=== PATIENT | female | born 1970 ===

== ENCOUNTER 2024-11-20 11:58 | Outpatient (AMB) | payer OTHER, SELFPAY ==
--- NOTE | 2024-11-20 12:26 | MHC.OFFVIS ---
Intake Visit Reasons: Tremors Allergies No Known Allergies Allergy (Verified 11/19/24 08:50) HPI Comments Details: The patient is a 54-year-old female presenting with a tremor in the right hand. 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 It is not present when the patient is at rest or sedentary. The patient reports episodic numbness in both hands, particularly noticeable in the mornings. This numbness has not significantly affected her sleep patterns. She has a professional background involving nail work for about 15 years, possibly implicating repetitive stress. There is no significant familial predisposition to tremors, and her gait is unaffected. [facility] Medical History (Updated 11/20/24 @ 12:31 by Patti Clark MD) GERD (gastroesophageal reflux disease) Vitamin D deficiency Seasonal allergies Anemia Tremor Surgical History (Updated 11/19/24 @ 08:48 by Rios Reaves CMA) History of laparoscopic cholecystectomy Previous section Review of Systems Const Details: - Neurological: Reports tremor of the right hand, numbness in both hands. Denies difficulty walking. - Musculoskeletal: Denies pain in the hands or elsewhere. - Family history: Denies family history of tremor or similar symptoms. Physical Exam Neuro Other: Mental Status: Alert and oriented to person, place, and time. Normal attention. Normal spontaneous speech, fluency, and comprehension. No obvious issues with mood and memory. Affect is appropriate. Cranial Nerves: CN II: Visual rush full to confrontation, visual acuity intact. CN III, IV, : Pupils equal, round, reactive to light and accommodation. Extraocular movements are normal. CN V: Facial sensation is normal. CN VII: Facial movements symmetrical. CN VIII: Hearing intact to bedside conversation is normal. CN IX, X: Palate elevates symmetrically. CN XI: Shoulder shrug and head turn symmetrical. CN XII: Tongue midline without atrophy or fasciculations. Motor: Bulk and tone normal in all extremities. No significant muscle weakness in arms and legs. No drift. Reflexes: Deep tendon reflexes 2+ and symmetric. Plantar response down-going bilaterally. Coordination: Zynyjp-sj-kjah and wqpo-ko-zcgy testing normal. No dysmetria. Gait and Station: No obvious gait abnormality. No ataxia or instability. Sensory: Intact to light touch, pinprick, and vibration. Romberg is negative. Extrapyramidal: Full facial expressions and blinking. No rigidity. Movements are appropriate with no tremor or abnormality. Speech: Normal; no dysarthria or tremor. Assessment & Plan Assessment & Plan (1) Tremor: Code(s): R25.1 - Tremor, unspecified Category: Medical (2) Carpal tunnel syndrome: Code(s): G56.00 - Carpal tunnel syndrome, unspecified upper limb Category: Medical Qualifiers: Laterality: bilateral Qualified Code(s): G56.03 - Carpal tunnel syndrome, bilateral upper limbs Plan Impression: 1. Mild right hand postural or action tremor mostly noted when she was working in her nail salon. 2. Bilateral carpal tunnel syndrome probably related to long years of working at [employer]. Recommendations: 1. EMG nerve conduction study upper extremities 2. No medicine is needed for tremor this time The patient's symptoms were discussed, focusing on the tremor and possible carpal tunnel syndrome. We discussed that the tremor does not currently warrant medication since it is minor and task-specific. For suspected carpal tunnel syndrome, we agreed on performing EMG and nerve conduction studies to help confirm the diagnosis. Non-pharmacological strategies will continue until the diagnostic results are reviewed. Future follow-up is necessary to reevaluate if the symptoms evolve. Orders: Orders NE electromyogram (EMG) Today G56.00 - Carpal tunnel syndrome, unspecified upper limb NE nerve conduction velocity Today G56.00 - Carpal tunnel syndrome, unspecified upper limb Coding Level of Care Code New Pt Level 4 (98993) Diagnoses Tremor R25.1 Bilateral carpal tunnel syndrome G56.03 Laterality: bilateral
--- OUTSIDE RECORDS SUMMARY | 2024-11-20 15:03 | XMS_ITS | Clinical Summary ---
Author Organization [facility] Address [address] [place] [address] Phone Care Team Providers Care Amortization Schedule Clerk Name Role Phone Patricia Tee MD Primary Care Provider [phone] Allergies No known active allergies Medications calcium carb, citrate/vit D3 (CITRACAL-D3 SLOW RELEASE ORAL) Take 1 Tab by mouth daily. Active fluoride, sodium, (Clinpro 5000) 1.1 % paste APPLY 1 EACH TOPICALLY 2 TIMES DAILY. USE TO BRUSH TEETH TWICE DAILY Active Clinpro 5000 1.1 % paste Apply 1 Dose topically 2 (two) times a day. 113 g 1 07/18/19 25 Active famotidine (PEPCID) 20 mg tablet TAKE 1 TABLET BY MOUTH TWICE A DAY 180 tablet 1 11/08/19 25 Active famotidine (PEPCID) 20 mg tablet Take 1 tablet (20 mg total) by mouth 2 (two) times a day. 60 tablet 3 08/10/19 25 025 Discontinued Active Problems Problem Noted Date Diagnosed Date Anemia 01/24/2018 Seasonal allergies 01/24/2018 Vitamin D deficiency 01/19/2017 GERD (gastroesophageal reflux disease) 7 Surgical History Surgery Date Site/Laterality Comments CHOLECYSTECTOMY PROCEDURE: PA LAPAROSCOPY SURG CHOLECYSTECTOMY SECTION PROCEDURE: HISTORICAL Medical History Medical History Date Comments Seasonal allergies 01/24/2018 DX:Seasonal a llergies Anemia 01/24/2018 DX:Anemia GERD (gastroesophageal reflu x disease) 01/18/2017 DX:GERD (gastroesophageal re flux disease) Vitamin D deficiency 01/19/2017 DX:Vitamin D deficiency Family History Medical History Relation Name Comments Kidney failure Father Relation Name Status Comments Brother 1 Alive Brother 2 Alive Daughter Alive Father Mother Alive Sister 1 Alive Sister 2 Alive Social History Tobacco Use Types Packs/Day Years Used Date Smoking Tobacco: Never Smokeless Tobacco: Never Alcohol Use Standard Drinks/Week Comments No 0 (1 standard drink = 0.6 oz pur e alcohol) Comments No Sex and Gender Information Value Date Recorded Sex Assigned at Female 03/05/2024 12:51 PM EST Legal Sex Female 1:42 AM EST Gender Identity Female 03/05/2024 12:51 PM EST Sexual Orientation Straight 03/05/2024 12 :51 PM EST Obstetrics History Para Term AB IAB SAB Ectopic Multiple Livin g Live Births 2 2 Date Outcome GA Total Labor Labor/2nd/3rd Weight Sex Type Anes PTL Priscilla A1 A5 Name Clin Last Filed Vital Signs Vital Sign Reading Time Taken Comments Blood Pressure 110/58 08/09/2024 12:03 PM EDT Pulse 65 08/09/2024 12:03 PM EDT Temperature 36.3 C (97.3 F) 08/09/2024 12:03 PM EDT Respiratory Rate - - Oxygen Saturation 99% 08/09/2024 12:03 PM EDT Inhaled Oxygen Concentration - - Weight 51.8 kg (114 lb 3.2 oz) 08/09/2024 12:03 PM EDT Height 142.2 cm (4' 8 ) 03/06/2024 11:16 AM EST Body Mass Index 25.6 03/06/2024 11:16 AM EST Plan of Treatment Upcoming Encounters Date Type Department Care Team (Late st Contact Info) Description 02/20/2025 10:30 AM EST Appointment [facility] Ultrasound [address] [place] [phone] 08/13/2025 10:30 AM EDT Office Visit Internal Medicine - [place] [address] [facility] [address] [place] [phone] aPtricia Tee MD 175 [facility] [address] [place] [phone] Health Maintenance Due Date Last Done Comments DTaP,Tdap,and Td Vaccines (1 - Tdap) 1990 Hepatitis B Vaccines (1 of 3 - 19+ 3-dose series) 1990 Pneumococcal Vaccine: 50+ Years (1 of 1 - PCV) 2021 HIV Screening 01/23/2022 Hepatitis C Screening 01/23/2022 Social Influencers of Health Screening 01/23/2022 Depression Screening 02/15/2024 COVID-19 Vaccine (3 - season) 2024 12/21/2021, 11/23/2021 Influenza Vaccine (#1) 2024 Breast Cancer Screening 03/06/2026 03/06/19, 01/25/2023, 01/18/2022, Additional history exists Cervical Cancer Screening: Pap Smear 04/18/2027 04/17/2024, 02/14/2008, 02/14/2008 Cholesterol Screening (Lipid Panel) 08/09/2029 08/09/2024, 12/21/2021 Colorectal Cancer Screening: Colonoscopy 02/11/2032 02/10/2022 RSV Immunization Adult Patients (1 - 1-dose 75+ series) 2046 Zoster Vaccines Completed 12/14/2022, 09/28/2022 HIB Vaccines Aged Out No longer eligi ble based on patient's age to complete this topic HPV Vaccines Aged Out No longer eligi ble based on patient's age to complete this topic Hepatitis A Vaccines Aged Out No long er eligible based on patient's age to complete this topic IPV Vaccines Aged Out No longer eligi ble based on patient's age to complete this topic MMR Vaccines Aged Out No longer eligi ble based on patient's age to complete this topic Meningococcal ACWY Vaccine Aged Out N o longer eligible based on patient's age to complete this topic Meningococcal B Vaccine Aged Out No l onger eligible based on patient's age to complete this topic RSV Immunization Patients Under 20 months Aged Out No longer eligible based on patient's age to complete this topic Varicella Vaccines Aged Out No longer eligible based on patient's age to complete this topic Procedures Procedure Name Priority Date/Time Associated Diagnosis Comments LIPID PANEL WITH REFLEX TO DIRECT LDL Routine 08/09/2024 12:39 PM EDT Breast cancer screening by mammogram Vitamin D deficiency Adult general medical examination Other fatigue PAP SMEAR Routine 04/17/2024 12:00 AM EST Encounter for gynecological examination (general) (routine) without abnormal findings MG MAMMO DIGITAL SCREENING W WILLIAM BILAT Routine 03/06/2024 11:23 AM EST Encounter for screening mammogram for breast cancer HM COLONOSCOPY Routine 02/10/2022 from Last 3 Months or Most Recently Relevant to Health Maintenance Results * (ABNORMAL) Lipid panel with reflex to direct LDL (08/09/2024 12:39 PM EDT) Cholesterol 246(H) 0 - 200 mg/dL LAB CHEMISTRY METHOD 08/09/2024 7:32 PM EDT [facility] Triglycerides 118 0 - 150 mg/dL LAB CHEMISTRY METHOD 08/09/2024 7:32 PM EDT [facility] HDL 77 >=40 mg/dL LAB CHEMISTRY METHOD 08/09/2024 7:32 PM EDT [facility] LDL Calculated 145(H) 0 - 100 mg/dL LAB CHEMISTRY METHOD 08/09/2024 7:32 PM EDT [facility] VLDL Cholesterol Jeffrey 23.6 mg/dL LAB CHEMISTRY METHOD 08/09/2024 7:32 PM EDT [facility] Non HDL Chol. (LDL+VLDL) 169(H) <145 mg/dL LAB CHEMISTRY METHOD 08/09/2024 7:32 PM EDT [facility] Chol/HDL Ratio 3.2 0.0 - 4.4 LAB CHEMISTRY METHOD 08/09/2024 7:32 PM [facility] Blood Venous blood specimen / Unknown Venipuncture / Unknown 08/09/2024 12:39 PM EDT 08/09/2024 12:39 PM EDT us Patricia Anamika Brandtanti MD LAB BLOOD ORDERABLES Final Res ult Performing Organization Address City/[facility]/ZIP Co de Phone Number [facility] [address] [place] [address], * Pap smear (04/17/2024 12:00 AM EST) Interpretation Negative for intraepithelial lesion or malignancy 04/23/2024 4:18 PM EDT [facility] General Categorization Negative 04/23/2024 4:18 PM EDT [facility] Other Findings Atrophy with inflammation 04/23/2024 4:18 PM EDT [facility] Additional Information Partially obscuring inflammation. Scant squamous cellularity 04/23/2024 4:18 PM EDT [facility] Specimen Adequacy Satisfactory for evaluation 04/23/2024 4:18 PM EDT [facility] Pap Methodology Liquid Based Pap Test 04/23/2024 4:18 PM EDT [facility] Disclaimer The Pap test is a screening test which carries an inherent false negative rate. These test results should be correlated with the patient's clinical findings and history. This Pap test was processed using an automated screening system. Technical cytopathology services provided by [facility], at [address] [place] [id number] (CLIA # [id number]/Ivonne Mixon MD, Globe Tester.) 04/23/2024 4:18 PM EDT [facility] Console Pap Interpretation Reported 04/23/2024 4:18 PM [facility] Brushing/Spatula Cervix uteri structure / Unknown 04/17/2024 04/18/2024 7:32 AM EST us Arcelia Lujan MD LAB CYTOLOGY ORDERABLES Final Result [facility] [address] [place] [id number], * MG Mammo Digital Screening w William bilat (03/06/2024 11:23 AM EST) Anatomical Region Laterality Modality Breast Bilateral Mammography 03/06/2024 11:2 6 AM EST Impressions 03/06/2024 11:38 AM EST No evidence of malignancy. A 9 mm diameter nodule at the 9:00 position of the right breast is stable. Ultrasound examinations, most recently 02/22/2024, demonstrates features consistent with a benign lesion such as a fibroadenoma. BI-RADS CATEGORY: 2 - BENIGN RECOMMENDATION: Screening bilateral mammogram is recommended in 1 year. Mammo Location: [facility], [address] [place] [id number] -------- FINAL REPORT -------- Dictated By: Janusz Thompson Dictated Date: 03/06/2024 11:26 ET Assigned Physician: Janusz Thompson Reviewed and Electronically Signed By: Janusz Thompson Signed Date: 03/06/2024 11:38 ET Workstation ID: [id number] Transcribed By: Self Edit Transcribed Date: 03/06/2024 11:26 ET Narrative 03/06/2024 11:38 AM EST CLINICAL: The patient is a 54 years Female presenting for routine screening mammography. COMPARISON: Most recently 02/01/2023 and most remotely 11/16/2016. TECHNIQUE: Full-field digital mammography of the breasts bilaterally consisting of tomosynthesis in MLO and CC projection is performed in the [employer] 2000-D unit. Computer aided detection utilizing the iCAD system was utilized. FINDINGS: The breasts are again seen to be composed of a combination of fatty and fibroglandular elements. A 9 mm diameter nodule at the 9:00 position of the right breast is stable. This is being evaluated on previous ultrasound examinations, most recently 02/22/2024, and is felt to be benign. Or suspicious mass lesion. There is no skin thickening or nipple retraction. TISSUE DENSITY: There are scattered areas of fibroglandular density. (BI-RADS category B) Procedure Note Janusz Thompson MD - 03/06/2024 CLINICAL: The patient is a 54 years Female presenting for routinescreening mammography. COMPARISON: Most recently 02/01/2023 and most remotely 11/16/2016. TECHNIQUE: Full-field digital mammography of the breasts bilaterallyconsisting of tomosynthesis in MLO and CC projection is performed in the[employer]ormis[employer]he 2000-D unit. Computer aided detection utilizing the Mandae Technologiesystem was utilized. FINDINGS: The breasts are again seen to be composed of a combination offatty and fibroglandular elements. A 9 mm diameter nodule at the 9:00position of the right breast is stable. This is being evaluated onprevious ultrasound examinations, most recently 02/22/2024, and is felt debo benign. Or suspicious mass lesion. There is no skin thickening ornipple retraction. TISSUE DENSITY: There are scattered areas of fibroglandular density.(BI-RADS category B) IMPRESSION: No evidence of malignancy. A 9 mm diameter nodule at the 9:00 position ofthe right breast is stable. Ultrasound examinations, most recently02/22/2024, demonstrates features consistent with a benign lesion such as afibroadenoma. BI-RADS CATEGORY: 2 - BENIGN RECOMMENDATION: Screening bilateral mammogram is recommended in 1 year. Mammo Location: [facility], [address] [place] [address] -------- FINAL REPORT -------- Dictated By: Janusz Thompson Dictated Date: 03/06/2024 11:26 ET Assigned Physician: Janusz Thompson Reviewed and Electronically Signed By: Janusz Thompson Signed Date: 03/06/2024 11:38 ET Workstation ID: [id number] Transcribed By: Self Edit Transcribed Date: 03/06/2024 11:26 ET us Self Referral Sppl IMG BI PROCEDURES Final Resul t * Hm Colonoscopy (02/10/2022) Colonoscopy abnormal, abstracted Anatomical Region Laterality Modality Other us Historical Provider HEALTH MAINTENANCE Final Result from Last 3 Months or Most Recently Relevant to Health Maintenance Insurance [facility] [address] [place] [address] Care Teams Amortization Schedule Clerk Relationship Specialty Start Date End Date Patricia Tee MD 175 [facility] [address] [place] [phone] PCP - General Internal Medicine 03/11/20
--- OUTSIDE RECORDS SUMMARY | 2024-11-20 15:03 | XMS_ITS | Encounter Summary ---
Author Organization [facility] Address [address] [place] [address] Care Team Providers Care Salvage Mend Worker Name Role Phone Patricia Tee MD Primary Care Provider [phone] Encounter Details Date Type Department Care Team (Latest Contact Info) Description 04/18/[address] [facility] - Main Lab [address] [facility] [place] [address] Arcelia Lujan MD [address] [phone] Encounter for gynecological examination (general) (routine) without abnormal findings Social History Tobacco Use Types Packs/Day Years [...] Orientation Straight 03/05/2024 12 :51 PM EST documented as of this encounter Plan of Treatment Upcoming Encounters Date Type Department Care Team (Late st Contact Info) Description 02/20/2025 10:30 AM EST Appointment [facility] Ultrasound [address] [place] [phone] 08/13/2025 10:30 AM EDT Office Visit Internal Medicine - [place] [address] [facility] [address] [place] [phone] Patricia Tee MD 175 [facility] [address] [place] [address] documented as of this encounter Procedures Procedure Name Priority Date/Time Associated Diagnosis Comments PAP SMEAR Routine 04/17/2024 12:00 AM EST Encounter for gynecological examination (general) (routine) without abnormal findings documented in this encounter Results * Pap smear (04/17/2024 12:00 AM EST) Interpretation Negative for intraepithelial lesion or malignancy [facility] General Categorization Negative 04/23/2024 4:18 PM EDT [facility] Other Findings Atrophy with inflammation 04/23/2024 4:[facility] Additional Information Partially obscuring inflammation. Scant squamous cellularity 04/23/2024 4:18 PM [facility] Specimen Adequacy Satisfactory for evaluation 04/23/2024 4:18 PM [facility] Pap Methodology Liquid Based Pap Test 04/23/2024 4:18 PM [facility] Disclaimer The Pap test is a screening test which carries an inherent false negative rate. These test results should be correlated with the patient's clinical findings and history. This Pap test was processed using an automated screening system. Technical cytopathology services provided by [facility], at [address] [place] [address], [place] [address] (CLIA # [id number]/Ivonne Mixon MD, Returned Goods Repairer.) 04/23/2024 4:18 PM [facility] Console Pap Interpretation Reported 04/23/2024 4:18 PM [facility] Brushing/Spatula Cervix uteri structure / Unknown 04/17/2024 04/18/2024 7:32 AM EST Arcelia Lujan MD LAB CYTOLOGY ORDERABLES Final Result [facility] [address] [place] [address], documented in this encounter Visit Diagnoses Diagnosis Encounter for gynecological examination (general) (routine) without abnormal findings documented in this encounter Care Teams Salvage Mend Worker Relationship Specialty Start Date End Date Patricia Tee MD [address] [phone] PCP - General Internal Medicine 03/11/20 documented as of this encounter
--- OUTSIDE RECORDS SUMMARY | 2024-11-20 15:03 | XMS_ITS ---
Author Name [facility] Organization Unknown Care Team Organization Name Specialty Phone Email Start Date End Da te [facility] Sally Martinez Primary Care 12/14/2022 10/03/[address] [facility] Patricia Tee Primary Care 12/22/2021 10/03/19 24
== END 2024-11-20 12:37 | disposition home or self-care (01) ==
PROVIDERS: PCP Internal Medicine; Visit Provider Psychiatry & Neurology Neurology
DX: R25.1 Tremor, unspecified (principal); G56.03 Carpal tunnel syndrome, bilateral upper limbs
CPT/HCPCS: 99204

== ENCOUNTER 2024-12-11 13:36 | Outpatient (REF) | payer OTHER, SELFPAY ==
--- NOTE | 2024-12-11 14:29 | EMG_ITS ---
Chief complaint: Shaking of hands and numbness of hands Reason for referral: R/O CTS, Cervical radiculopathy Referred by: Fabi Clark MD Procedure done: NCS and EMG of bilateral upper extremities Bilateral median and ulnar motor studies were performed bilateral median and ulnar mixed sensory studies were performed, bilateral median and lateral antecubital brachial and radial sensory studies were performed an EMG needle examination was performed. Findings: This study did not reveal any abnormal electrical parameters. Impression: This is an unremarkable study with no evidence of median or ulnar neuropathy or a proximal lesion. Codin [id number] x2 MTDD
--- NOTE | 2024-12-11 14:50 | EMG_ITS ---
Chief complaint:?G56.00 Carpal tunnel syndrome Reason for referral: Numbness and pain Referred by:?Dr Clark Procedure done: Bilateral upper extremities NCS/EMG Left median and ulnar motor studies were performed. Left median and ulnar mixed sensory studies were performed. Left radial sensory and median and lateral antecubital brachial sensory studies were performed and needle examination was performed. Findings: Left median motor distal latencies moderately prolonged with mildly slow conduction velocity. Left median mixed study did not reveal any response. Otherwise no significant abnormality was noted. 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
--- OUTSIDE RECORDS SUMMARY | 2024-12-11 17:38 | XMS_ITS | Encounter Summary ---
Author Organization [facility] Address [address] [place] [address] Care Team Providers Care Dishwashing Machine Operator Name Role Phone Patricia Tee MD Primary Care Provider [phone] Encounter Details Date Type Department Care Team (Latest Contact Info) Description 04/18/2024 Lab Requisition [facility] - Main Lab [address] [facility] [phone] Arcelia Lujan MD [address] [phone] Encounter for gynecological examination (general) [...] Info) Description 02/20/2025 10:30 AM EST Appointment [facility] Ultrasound [address] [place] [phone] 08/13/2025 10:30 AM EDT Office Visit Internal Medicine - [place] [address] [facility] [address] [place] [address] Patricia Tee MD [address] [place] [phone] documented as of this encounter Procedures Procedure Name Priority Date/Time Associated Diagnosis Comments PAP SMEAR Routine 04/17/2024 12:00 AM EST Encounter for gynecological examination (general) (routine) without abnormal findings documented in this encounter Results * Pap smear (04/17/2024 12:00 AM EST) Interpretation Negative for intraepithelial lesion or malignancy [facility] General Categorization Negative 04/23/2024 4:18 PM EDT [facility] Other Findings Atrophy with inflammation 04/23/2024 4:18 PM [facility] Additional Information Partially obscuring inflammation. Scant squamous cellularity 04/23/2024 4:18 PM [facility] Specimen Adequacy Satisfactory for evaluation 04/23/2024 4:18 PM [facility] Pap Methodology Liquid Based Pap Test 04/23/2024 4:18 PM [facility] Disclaimer The Pap test is a screening test which carries an inherent false negative rate. These test results should be correlated with the patient's clinical findings and history. This Pap test was processed using an automated screening system. Technical cytopathology services provided by [facility], at [address] [facility], [place] [address] (CLIA # [id number]/Ivonne Mixon MD, Netsuite Developer.) 04/23/2024 4:18 PM [facility] Console Pap Interpretation Reported 04/23/2024 4:18 PM [facility] Brushing/Spatula Cervix uteri structure / Unknown 04/17/2024 04/18/2024 7:32 AM EST us Arcelia Lujan MD LAB CYTOLOGY ORDERABLES Final Result [facility] HOSP[facility] LAB [address] [place] [address], documented in this encounter Visit Diagnoses Diagnosis Encounter for gynecological examination (general) (routine) without abnormal findings documented in this encounter Care Teams Dishwashing Machine Operator Relationship Specialty Start Date End Date Patricia Tee MD [address] [facility] [address] [place] [phone] PCP - General Internal Medicine 03/11/20 documented as of this encounter
--- OUTSIDE RECORDS SUMMARY | 2024-12-11 17:38 | XMS_ITS | Clinical Summary ---
Author Organization [facility] Address [address] [place] [address] Phone Care Team Providers Care Parlor Chaperone Name Role Phone Patricia Tee MD Primary Care Provider [phone] Allergies No known active allergies Medications calcium carb, citrate/vit D3 (CITRACAL-D3 SLOW RELEASE ORAL) Take 1 Tab by mouth daily. Active fluoride, sodium, (Clinpro 5000) 1.1 % paste APPLY 1 EACH TOPICALLY 2 TIMES DAILY. USE TO BRUSH TEETH TWICE DAILY Active Clinpro 5000 1.1 % paste Apply 1 Dose topically 2 (two) times a day. 113 g 1 5 Active famotidine (PEPCID) 20 mg tablet TAKE 1 TABLET BY MOUTH TWICE A DAY 180 tablet 1 5 Active Active Problems Problem Noted Date Diagnosed Date Anemia 01/24/2018 Seasonal allergies 01/24/2018 Vitamin D deficiency 01/19/2017 GERD (gastroesophageal reflux disease) 7 Surgical History Surgery Date Site/Laterality Comments CHOLECYSTECTOMY PROCEDURE: [place] LAPAROSCOPY SURG CHOLECYSTECTOMY SECTION PROCEDURE: HISTORICAL Medical [...] Info) Description 02/20/2025 10:30 AM EST Appointment [facility] Ultrasound [address] [place] [phone] 08/13/2025 10:30 AM EDT Office Visit Internal Medicine [facility] [address] [facility] [address] [place] [phone] Patricia Tee MD [address] [place] [phone] Health Maintenance Due Date Last Done Comments [...] Vaccine (#1) 2024 Breast Cancer Screening 03/06/2026 03/06/19 25, 01/25/2023, 01/18/2022, Additional history exists Cervical Cancer [...] LAB CHEMISTRY METHOD 08/09/2024 7:[address] [facility] Triglycerides 118 0 - 150 mg/dL LAB CHEMISTRY METHOD 08/09/2024 7:[address] [facility] HDL 77 >=40 mg/dL LAB CHEMISTRY METHOD 08/09/2024 7:[address] [facility] LDL Calculated 145(H) 0 - 100 mg/dL LAB CHEMISTRY METHOD 08/09/2024 7:[address] [facility] VLDL Cholesterol Jeffrey 23.6 mg/dL LAB CHEMISTRY METHOD 08/09/2024 7:[address] [facility] Non HDL Chol. (LDL+VLDL) 169(H) <145 mg/dL LAB CHEMISTRY METHOD 08/09/2024 7:[address] [facility] Chol/HDL Ratio 3.2 0.0 - 4.4 LAB CHEMISTRY METHOD 08/09/2024 7:[address] [facility] Blood Venous blood specimen / Unknown Venipuncture / Unknown 08/09/2024 12:39 PM EDT 08/09/2024 12:39 PM EDT us Patricia Tee MD LAB BLOOD ORDERABLES Final Res ult [facility] [address] [place] [address], [place] [phone] * Pap smear (04/17/2024 12:00 AM EST) Interpretation Negative for intraepithelial lesion or malignancy 04/23/2024 4:[address] [facility] General Categorization Negative 04/23/2024 4:[address] [facility] Other Findings Atrophy with inflammation 04/23/2024 4:[address] [facility] Additional Information Partially obscuring inflammation. Scant squamous cellularity 04/23/2024 4:[address] [facility] Specimen Adequacy Satisfactory for evaluation [facility] Pap Methodology Liquid Based Pap Test 04/23/2024 4:[address] [facility] Disclaimer The Pap test is a screening test which carries an inherent false negative rate. These test results should be correlated with the patient's clinical findings and history. This Pap test was processed using an automated screening system. Technical cytopathology services provided by [facility], at [address] [place] [id number] (CLIA # [id number]/Ivonne Mixon MD, Curator Herbarium.) 04/23[facility]24 [facility] Console Pap Interpretation Reported 04/23/2024 4:18 PM [facility] Brushing/Spatula Cervix uteri structure / Unknown 04/17/2024 04/18/2024 7:32 AM EST us Arcelia Lujan MD LAB CYTOLOGY ORDERABLES Final Result [facility] [address] [place] [address], * MG Mammo Digital Screening w William [...] is recommended in 1 year. Mammo Location: [facility], [address] [place] [address] -------- FINAL REPORT -------- Dictated By: Janusz Thompson Dictated Date: 03/06/2024 11:26 ET Assigned Physician: Janusz Thompson Reviewed and Electronically Signed By: Janusz Thompson Signed Date: 03/06/2024 11:38 ET Workstation ID: [id number] Transcribed By: Self Edit Transcribed Date: 03/06/2024 11:26 ET Narrative 03/06/2024 11:38 AM EST CLINICAL: The patient is a 54 years Female presenting for routine screening mammography. COMPARISON: Most recently 02/01/2023 and most remotely 11/16/2016. TECHNIQUE: Full-field digital mammography of the breasts bilaterally consisting of tomosynthesis in MLO and CC projection is performed in the [employer]he 2000-D unit. Computer aided detection utilizing the [...] MLO and CC projection is performed in theDoubleUp Senographe 2000-D unit. Computer aided detection utilizing the Angelfishystem was utilized. FINDINGS: The breasts are again [...] is recommended in 1 year. Mammo Location: [facility], [address] [place] [id number] -------- FINAL REPORT -------- Dictated By: Janusz Thompson Dictated Date: 03/06/2024 11:26 ET Assigned Physician: Janusz Thompson Reviewed and Electronically Signed By: Janusz Thompson Signed Date: 03/06/2024 11:38 ET Workstation ID: [id number] Transcribed By: Self Edit Transcribed Date: 03/06/2024 11:26 ET us Self Referral Sppl IMG BI PROCEDURES Final Resul t * Hm Colonoscopy (02/10/2022) Colonoscopy abnormal, abstracted Anatomical Region Laterality Modality Other Historical Provider HEALTH MAINTENANCE Final Result from Last 3 Months or Most Recently Relevant to Health Maintenance Insurance [facility] [address] [place] [address] Care Teams Parlor Chaperone Relationship Specialty Start Date End Date Patricia Tee MD [address] [facility] [address] [place] [phone] PCP - General Internal Medicine 03/11/20
== END 2024-12-11 13:37 | disposition home or self-care (01) ==
LOC: HO.NEURO 13:36
PROVIDERS: PCP Internal Medicine; Visit Provider Psychiatry & Neurology Neurology
DX: G56.00 Carpal tunnel syndrome, unspecified upper limb (principal); R20.0 Anesthesia of skin
CPT/HCPCS: 95911; 95913

== ENCOUNTER → 2024-12-11 14:50 | Outpatient (BNV) | payer OTHER, SELFPAY | PROVIDERS: PCP Internal Medicine; Visit Provider Psychiatry & Neurology Neurology | DX: G56.00 Carpal tunnel syndrome, unspecified upper limb (principal); R20.0 Anesthesia of skin | CPT/HCPCS: 95886; 95913 ==

== ENCOUNTER 2024-12-31 15:40 | Outpatient (AMB) | payer OTHER, SELFPAY ==
--- NOTE | 2024-12-31 15:43 | MHC.OFFVIS ---
Intake Visit Reasons: RESULTS Allergies No Known Allergies Allergy (Verified 11/19/24 08:50) HPI Comments Details: 54 years old woman with mild bilateral hand tremor and discomfort. Test for carpal tunnel syndrome was negative. She is presenting with a tremor in the right hand. 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 It is not present when the patient is at rest or sedentary. The patient reports episodic numbness in both hands, particularly noticeable in the mornings. This numbness has not significantly affected her sleep patterns. She has a professional background involving nail work for about 15 years, possibly implicating repetitive stress. There is no significant familial predisposition to tremors, and her gait is unaffected. [facility] Medical History (Updated 11/20/24 @ 12:31 by Patti Clark MD) GERD (gastroesophageal reflux disease) Vitamin D deficiency Seasonal allergies Anemia Tremor Surgical History (Updated 11/19/24 @ 08:48 by Rios Reaves CMA) History of laparoscopic cholecystectomy Previous section Review of Systems Narrative - Neurological: Reports tremor of the right hand, numbness in both hands. Denies difficulty walking. - Musculoskeletal: Denies pain in the hands or elsewhere. - Family history: Denies family history of tremor or similar symptoms. Physical Exam Neuro Other: Mental Status: Alert and oriented to person, place, and time. Normal attention. Normal spontaneous speech, fluency, and comprehension. No obvious issues with mood and memory. Affect is appropriate. Cranial Nerves: CN II: Visual rush full to confrontation, visual acuity intact. CN III, IV, : Pupils equal, round, reactive to light and accommodation. Extraocular movements are normal. CN V: Facial sensation is normal. CN VII: Facial movements symmetrical. CN VIII: Hearing intact to bedside conversation is normal. CN IX, X: Palate elevates symmetrically. CN XI: Shoulder shrug and head turn symmetrical. CN XII: Tongue midline without atrophy or fasciculations. Motor: Bulk and tone normal in all extremities. No significant muscle weakness in arms and legs. No drift. Reflexes: Deep tendon reflexes 2+ and symmetric. Plantar response down-going bilaterally. Coordination: [id number]-[id number] and [id number]-[id number] testing normal. No dysmetria. Gait and Station: No obvious gait abnormality. No ataxia or instability. Extrapyramidal: No significant tremor noted today. Speech: Normal; no dysarthria or tremor. Assessment & Plan Assessment & Plan (1) Tremor: Code(s): R25.1 - Tremor, unspecified Category: Medical Plan Mild bilateral hand tremor, postural type, with no evidence of carpal tunnel syndrome. She was reassured and educated. No medicine was needed and clinical follow would continue. I would see her back in 2 years' time. Coding Level of Care Code Est Pt Level 3 (99001) Diagnoses Tremor R25.1
== END 2024-12-31 15:46 | disposition home or self-care (01) ==
LOC: HO.HSM 15:41
PROVIDERS: PCP Internal Medicine; Visit Provider Psychiatry & Neurology Neurology
DX: R25.1 Tremor, unspecified (principal)
CPT/HCPCS: 99213